=== PATIENT | male | born 1980 | race Caucasian/White ===

== ENCOUNTER → 2019-10-23 12:41 | Outpatient (CLI) | payer SELFPAY ==
--- NOTE | 2019-10-23 13:00 | MRI_ITS ---
STUDY: MRI BRAIN WITH AND WITHOUT CONTRAST REASON FOR EXAM: Male, 38 years old. Left retobulbar optic neuritis, vision changes TECHNIQUE: Standardized multiplanar fat and water weighted pulse sequences were obtained. IV Dotarem 15ml was administered for the contrast portion of the examination. COMPARISON: None. FINDINGS: Normal size of the ventricles and extra-axial spaces for the patient''s age. Multiple hyperintensities of the pericallosal, periventricular, and subcortical white matter most consistent with demyelinating disease (multiple sclerosis). Other possibilities include hypercoagulable state, vasculitis, migraine headaches, or Lyme disease. None of these areas demonstrates contrast enhancement. There is no evidence for recent intracranial ischemia or other cause of cytotoxic edema on diffusion weighted imaging (DWI). Normal T2* images of the brain without demonstrated susceptibility artifact. There is no demonstrated hemosiderin stain. Normal bilateral basal ganglia. Normal thalami. There is no extra-axial fluid accumulation. Normal flow voids within the major intracranial circulation suggesting patency by spin echo criteria. Normal venous enhancement. There is no enhancing intra-axial or extra-axial abnormality. Normal sella turcica, pituitary gland, infundibular stalk, optic chiasm and hypothalamus. Normal tectal plate and pineal gland. Normal midbrain, jesica and medulla. Normal cerebellum. Normal basal cisterns. Normal bilateral temporal bones. Normal bilateral internal auditory canals. No demonstrated orbital abnormality, within the constraints of a routine brain study. Normal visualized paranasal sinuses. Normal calvarium and skull base. Normal visualized soft tissue structures. Normal visualized upper cervical spine. MRI/Brain W/WO Contrast IMPRESSION: Suspect demyelinating disease (multiple sclerosis). No contrast-enhancing plaque. Other possibilities include hypercoagulable state, vasculitis, migraine headaches, Lyme disease. Electronically Signed: Arturo Akers MD at 14:11 EDT Tel , Service support ,
== END ==
LOC: MRI 12:44
PROVIDERS: Referring Provider Ophthalmology; Visit Provider Ophthalmology
DX: H46.12 Retrobulbar neuritis, left eye (principal)
CPT/HCPCS: 70553; A9575